=== PATIENT | male | born 1945 | race Caucasian/White ===

== ENCOUNTER → 2016-12-19 | Outpatient (CLI) | payer MEDICARE, OTHER | LOC: RAD 13:24 | PROVIDERS: ATTEND Orthopaedic Surgery | DX: M25.511 Pain in right shoulder (principal); M75.101 Unspecified rotator cuff tear or rupture of right shoulder, not specified as traumatic | CPT/HCPCS: 73040; Q9966 ==

== ENCOUNTER → 2017-01-05 | Outpatient (CLI) | payer MEDICARE, OTHER ==
[~2017-01-05] MED LIST: ALBU0.8322 IH; AMOX1TAB12 PO; ASPI-134 PO; CLOP75TA28 PO; ESCI20TA39 PO; FEXO180T84 PO; FLT11013 INH; GLUC-132 PO; HCT25T PO; HYDR1POW18 MC; INDA1.25 PO; METF500T PO; METO-272 PO; MULT-55 PO; NCT21TD TD; PRD20T PO; SIMV40TA2 PO; TIOT18CA IH
== END ==
LOC: RT 08:59
PROVIDERS: ATTEND Nurse Practitioner
DX: R09.02 Hypoxemia (principal); J47.9 Bronchiectasis, uncomplicated
CPT/HCPCS: 94060; 94726; 94729